=== PATIENT | female | born 1965 | race Caucasian/White ===

== ENCOUNTER → 2018-09-29 | Day surgery (SDC) | payer OTHER ==
[~2018-09-29] VITALS: Ht 162.6 cm; Wt 81.7 kg
[~2018-09-29] MED LIST: ARAVA20 MG PO; ATORVASTATIN CA40 MG PO; BUSPIRONE HCL10 MG PO; FLONASE 0.05%50 MCG NASAL; GLUCOPHAGE XR500 MG PO; LASIX 20 MG TAB20 MG PO; LYRICA 75 MG CA75 MG PO; NEXIUM40 MG PO; OXYCODONE HCL 55 MG PO; POTASSIUM CITR15 MEQ PO; PREDNISONE 20 M20 MG PO; REMERON30 MG PO; SINGULAIR 10 MG10 M1 PO; SULFASALAZINE500 M5 PO; SYMBICORT80 MCG/4.1 INH; TRAMADOL 50 MG50 MG PO; TRAZODONE HCL100 MG PO; VENTOLIN HFA 1818 GM INH; VERAPAMIL E.R240 M1 PO; VITAMIN D1000 UNI1 PO; ZANAFLEX4 MG PO; ZANTAC 150MG T150 MG PO
[2018-09-29 06:47] LABS: HEMATOCRIT 32.6 % (37.0-47.0); MCH 26.7 pg (26.0-34.0); MCHC 30.6 g/dL (28.0-37.0); MCV 87.2 fL (80.0-100.0); RBC 3.73 mil/uL (4.20-5.00); RDW 20.9 % (10.5-14.5); WBC 13.3 thou/uL (4.0-11.0)
[2018-09-29 07:22] LABS: CALCIUM 9.1 mg/dL (8.5-10.1); CREATININE 0.9 mg/dL (0.6-1.0); POTASSIUM 3.6 mmol/L (3.5-5.1)
[2018-09-29 08:30] VITALS: BP 125/53
--- NOTE | 2018-09-30 18:31 | EKG ---
[address] [address] ELECTROCARDIOGRAM REPORT Name: PANCHITO LEAVITT Room #: 150-4 [facility].#: [id number] ������������������ Admission: 09/29/18 ������������������ Attend Phys: Chelsey Caceres, Discharge: ������������������ Date of : 63 Report #: [id number] ����������������������������������������������������������������� [id number] THIS REPORT FOR: //name// [facility] Test Date: 2018-09-29 Test Time: 06:32:20 Pat Name: PANCHITO LEAVITT Department: Room: 150 4 Gender: F [employer]: STEVE : 1965 Requested By: Chelsey Caceres Order Number: [id number] MD: Mannie Quiroz Measurements Intervals [place] Rate: 78 P: 43 SD: 137 QRS: 13 QRSD: 85 T: 77 QT: 423 QTc: 482 Interpretive Statements Sinus rhythm Early transition Borderline repolarization abnormality Baseline wander No previous ECG available for comparison Electronically Signed On 09-30-2018 18:31:06 CDT by Mannie Quiroz [email or web address] ��������������������������������������������� <ELECTRONICALLY SIGNED> ���������������������������������������� By: Mannie Quiroz MD ��������������������������������������������� 09/30/18 1831 0632 0632 Mannie Quiroz MD /ROBE
== END | disposition home or self-care (01) ==
LOC: OR 09-19 05:38 → TBA 09-19 05:38 → OR 09-19 05:39 → TBA 09-19 05:39 → OR 09-19 09:45 → TBA 05:35 → OR 08:07
PROVIDERS: Preventive Medicine Occupational Medicine
DX: M48.54XA Collapsed vertebra, not elsewhere classified, thoracic region, initial encounter for fracture (principal); M43.8X4 Other specified deforming dorsopathies, thoracic region; Z68.30 Body mass index [BMI] 30.0-30.9, adult; F17.210 Nicotine dependence, cigarettes, uncomplicated; F32.9 Major depressive disorder, single episode, unspecified; J43.9 Emphysema, unspecified; I10 Essential (primary) hypertension; E78.5 Hyperlipidemia, unspecified; D64.9 Anemia, unspecified; Z79.899 Other long term (current) drug therapy; M54.5 Low back pain; M06.9 Rheumatoid arthritis, unspecified; E11.9 Type 2 diabetes mellitus without complications
CPT/HCPCS: 50010; 50101